=== PATIENT | male | born 1945 | race Caucasian/White ===

== ENCOUNTER → 2018-11-24 | Outpatient (CLI) | payer MEDICARE ==
--- NOTE | 2018-11-25 08:41 | CT ---
EXAMINATION TYPE: CT lumbar spine wo con DATE OF EXAM: 11/24/2018 COMPARISON: None HISTORY: low back pain CT DLP: 1435 mGycm CONTRAST: None TECHNIQUE: CT of the lumbar spine is performed on a spiral scan at 3 mm thick sections. Reconstructed images are performed in the coronal and sagittal planes. FINDINGS: Scoliosis is present. T12-L1: No focal disc herniation or significant disc bulge is evident. No spinal canal stenosis or neural foraminal stenosis is present. L1-L2: There is loss of disc height through this level. No suspicious residual disc bulge is evident. No spinal canal stenosis or neural foraminal stenosis is present. L2-L3: Mild disc bulge has anterior thecal sac contact. No AP spinal canal stenosis present. Mild lig amentum flavum laxity is present on the right. Foramen are patent. L3-L4: Minimal disc bulge has anterior thecal sac contact. No AP spinal canal stenosis or neural fora samantha stenosis is present. Some mild ligamentum flavum laxity is present. L4-L5: Broad-based disc bulge has mild to moderate anterior thecal sac compression. Facet hypertrophy and ligamentum flavum laxity has posterior lateral thecal sac compression. No spinal canal stenosis is present. Neural foramen are patent. L5-S1: No focal disc herniation or significant disc bulge is evident. No spinal canal stenosis or n eural foraminal stenosis is present IMPRESSION: 1. Loss of disc height L1-2. 2. Mild disc bulge L2-3 and L3-4 without spinal canal stenosis. 3. Broad-based disc bulge with mild to moderate anterior thecal sac compression L4-5 with facet hyper trophy and ligamentum flavum laxity with posterior lateral thecal sac compression. No spinal canal st enosis is present at this level.
== END | disposition home or self-care (01) ==
LOC: RADCTMAIN 16:42
PROVIDERS: ATTEND Physical Medicine & Rehabilitation
DX: M51.26 Other intervertebral disc displacement, lumbar region (principal); M51.86 Other intervertebral disc disorders, lumbar region; G95.29 Other cord compression; M24.28 Disorder of ligament, vertebrae; E11.9 Type 2 diabetes mellitus without complications; Z95.5 Presence of coronary angioplasty implant and graft
CPT/HCPCS: 72131

== ENCOUNTER → 2020-07-13 | Day surgery (SDC) | payer MEDICARE ==
[2020-07-10 16:14] VITALS: BMI 29.5
[~2020-07-13] MED LIST: ALPRAZolam 0.25 MG TAB PO PRN; ALPRAZolam 0.5 MG TAB PO PRN; ASPIRIN 325 MG TAB PO ONE; ATORVASTATIN 80 MG TAB PO ONE; Acetaminophen-Codeine 300-30mg TAB PO PRN; GLIMEPIRIDE 1 MG TAB PO SCH; HEPARIN SODIUM 1,000 UN/ML (10ML VL) ONE; IOPAMIDOL-370 125ML BTL INJ ONE; LIDOCAINE 1% INJ 10MG/ML (20 ML MDV) ONE; LIDOCAINE 1% INJ 10MG/ML (20 ML MDV) SQ ONE; METOPROLOL 25 MG PO SCH; NITROGLYCERIN SL TABS 0.4 MG TAB SUBLINGUAL PRN; NON FORMULARY DRUG (Aspirin [Adult Low Dose Aspirin Ec] 81 MG Tablet.Dr) PO SCH; NON FORMULARY DRUG (Insulin Glargine 100 UNIT/ML Vial) SQ SCH; NON FORMULARY DRUG (Simvastatin 40 MG Tab) PO SCH; PRAMIPEXOLE 0.25 MG TAB PO SCH; PRIMIDONE 50 MG TAB PO SCH; RX INFO: IV CONTRAST WAS GIVEN 1 EACH MISC MISCELLANE PRN; SODIUM CHLORIDE 0.9% 1,000 ML IV SCH; SODIUM CHLORIDE 0.9% 1,000 ML in EMPTY BAG 1 BAG IV ONE; VERAPAMIL 2.5 MG/ML 2 ML AMP ONE; fentaNYL (PF) 50 MCG/ML 2 ML AMP IV ONE; fentaNYL (PF) 50 MCG/ML 2 ML AMP ONE; lisinopriL 10 MG TAB PO SCH
[2020-07-13 07:05] LABS: Glucose,Whole Blood 141 mg/dL (75-99)
[2020-07-13 07:10] VITALS: RESP 18; TEMP 98.3
[2020-07-13 07:10] LABS: Basophils % (A) 0 %; Eosinophils # (A) 0.2 k/uL (0-0.7); Eosinophils % (A) 3 %; HCT 46.1 % (39.0-53.0); HGB 14.8 gm/dL (13.0-17.5); Lymphocytes # (A) 2.4 k/uL (1.0-4.8); Lymphocytes % (A) 28 %; MCH 31.4 pg (25.0-35.0); MCHC 32.2 g/dL (31.0-37.0); MCV 97.6 fL (80.0-100.0); Mean Platelet Volume 11.8; Monocytes # (A) 0.7 k/uL (0-1.0); Monocytes % (A) 8 %; Neutrophils % (A) 58 %; Platelet Count 207 k/uL (150-450); RBC 4.73 m/uL (4.30-5.90); RDW 12.8 % (11.5-15.5); WBC 8.6 k/uL (3.8-10.6)
[2020-07-13] MEDS: MIDAZOLAM 2 MG/2 ML VIAL IVP ONE ×2 (07:44→08:13)
[2020-07-13] MEDS: VERAPAMIL SYRINGE (5 MG/10 ML) INTRAARTER ONE ×2 (07:50→08:19)
[2020-07-13 07:57] LABS: Large Platelets Present
--- NOTE | 2020-07-13 10:07 | CC ---
CARDIAC CATHETERIZATION REPORT Mr. Magana is a 74-year-old male with known history of hypertension, hyperlipidemia, history of coronary artery disease who recently has been complaining of progressive fatigue, underwent a myocardial perfusion imaging that revealed evidence of inducible ischemia. In view of that, recommendation made regarding cardiac catheterization. The procedures, risks, and complications were discussed with the patient who is in full understanding and agreement. PROCEDURE: Patient was brought to irrigation laborer in a fasting semi-sedated state after receiving fentanyl and Benadryl and achieving moderate conscious sedated state. Using Xylocaine anesthesia and Seldinger technique, a 6-Italian sheath was introduced in the left radial artery. Selective right coronary angiography performed using 5-Italian, 4 bend right Briseida catheter. Multiple attempts to cannulate the left main using a 5-Italian, 4 bend, 6-Italian 4.5 bend, 6-Italian 5 bend and a 6-Italian Daron catheter were unsuccessful in cannulating the left main because of a 360 degree loop in the left subclavian at that time. Using Xylocaine anesthesia and Seldinger technique, a 6- Italian sheath was introduced in the right femoral artery and selective left coronary angiography was performed using a 5-Italian 4 bend left Briseida catheter. Multiple views of the coronary artery including hemiaxial views obtained. Prior to that, the Daron catheter was used to cross the aortic valve and left ventricular end-diastolic pressure was calculated. Following that, catheter and sheath were removed. Hemostasis was obtained with deployment of an Angio-Seal in the right femoral artery and a TR band over the left radial artery. The patient was returned to his room without any complication. Of note, the patient received a total of 5000 units of intravenous heparin as well as intra-arterial verapamil. FINDINGS: LEFT MAIN: This is a large-sized vessel, bifurcating into left circumflex, left anterior descending artery. Left main coronary artery has no evidence of high-grade stenosis. LEFT ANTERIOR DESCENDING ARTERY: This is a large-sized vessel, reaching toward the apex with a wraparound apex segment giving rise to 2 diagonal branch. The second one is large in caliber. The stented segment in the mid LAD is patent with minimal intimal disease distal to it 20%. The second diagonal branch has a 40%-50% plaque, but it is small in caliber. LEFT CIRCUMFLEX: This is a large nondominant vessel, giving rise to a large obtuse marginal branch. The left circumflex as well as branches have no evidence of obstructive coronary artery disease. RIGHT CORONARY ARTERY: This is a large dominant vessel, bifurcating into PDA and posterolateral segment branches. The right coronary artery as well as branches have no evidence of obstructive coronary artery disease. LEFT VENTRICULOGRAM: Left ventriculogram was not performed. HEMODYNAMICS: There was no gradient across the aortic valve. The left ventricular end- diastolic pressure was 10-15 mmHg. CONCLUSION: 1. Calcified left anterior descending artery. 2. Patent stent to the LAD with mild obstructive disease in the mid LAD. RECOMMENDATION: In view of findings and anatomy, recommend continue medical therapy with aggressive risk modifications being initiated. Those findings and recommendation were discussed with the patient and his family and they are in full understanding and agreement. DURATION OF SEDATION: 53 minutes. MMODL / IJN: [id number] /
[2020-07-13 14:41] VITALS: BP 134/76; PULSE 84
== END | disposition home or self-care (01) ==
LOC: CATHCVL 06:24
PROVIDERS: ATTEND Internal Medicine Interventional Cardiology
DX: I25.10 Atherosclerotic heart disease of native coronary artery without angina pectoris (principal); I10 Essential (primary) hypertension; E11.9 Type 2 diabetes mellitus without complications; E78.2 Mixed hyperlipidemia; M19.90 Unspecified osteoarthritis, unspecified site; Z88.1 Allergy status to other antibiotic agents; Z79.4 Long term (current) use of insulin; Z79.82 Long term (current) use of aspirin; Z79.899 Other long term (current) drug therapy; Z87.891 Personal history of nicotine dependence; Z95.5 Presence of coronary angioplasty implant and graft
CPT/HCPCS: 93458; 85025; C1760; C1769 ×3; C1894 ×2; J2250; J2001; J3010; J1644; Q9967